=== PATIENT | male | born 1975 | race Caucasian/White ===

== ENCOUNTER 2025-02-11 10:51 | Outpatient (CLI) | payer OTHER, SELFPAY ==
--- NOTE | ~2025-02-11 | MR_ITS ---
EXAMINATION: MR shoulder LT wo con DATE: 02/11/2025 11:25 INDICATION: Rotator cuff tear. Left shoulder pain. TECHNIQUE: Magnetic resonance imaging (MRI) of the left shoulder was performed without intravenous co ntrast. Sequences included axial PD-weighted FS FSE, coronal oblique PD-weighted FS FSE and T2-weight ed FS FSE, and sagittal oblique T2-weighted FS FSE and T1-weighted FSE. COMPARISON: None. FINDINGS: Coracoacromial arch: The acromion undersurface is curved in morphology (type II). There is moderate acromioclavicular join t osteoarthritis including inferiorly directed osteophytes. Subacromial spurring is noted. There is m oderate subacromial/subdeltoid bursitis. Rotator cuff: There is a full-thickness tear of supraspinatus tendon measuring 13 mm anterior to posterior by 9 mm proximal to distal. There is mild infraspinatus tendinopathy. Teres minor tendon is normal. There is mild subscapularis tendinopathy. There is no asymmetric fatty atrophy of the rotator cuff muscle huff ies. Biceps tendon and glenoid labrum: Biceps tendon is in bicipital groove. Intra-articular biceps tendon is normal. There is a tear of bas e of posterior glenoid labrum. Fluid: There is no glenohumeral joint effusion. Bones/cartilage: There is cartilage surface irregularity of glenoid and humeral head. IMPRESSION: 1. Full-thickness rotator cuff tear. 2. Mild glenohumeral joint chondrosis. 3. Moderate subacromial/subdeltoid bursitis. 4. Moderate acromioclavicular joint osteoarthritis. Reviewed, dictated and finalized at location B.
== END 2025-02-11 10:52 | disposition home or self-care (01) ==
LOC: GOSHIMG 10:52
PROVIDERS: PCP Chiropractor; Visit Provider Chiropractor
DX: M75.122 Complete rotator cuff tear or rupture of left shoulder, not specified as traumatic (principal); M94.212 Chondromalacia, left shoulder; M75.52 Bursitis of left shoulder; M19.012 Primary osteoarthritis, left shoulder
CPT/HCPCS: 73221

== ENCOUNTER 2025-08-10 16:55 | Outpatient (CLI) | payer OTHER, SELFPAY ==
--- NOTE | ~2025-08-10 | XR_ITS ---
EXAMINATION: XR hand LT min 3V, 08/10/2025 17:04 CDT HISTORY: Arthritis of first carpometacarpal joint of left hand COMPARISON: No comparisons available. Findings: There are postsurgical changes noted involving the first metacarpocarpal joint and the proximal second metacarpal. No fracture or dislocation. Minimal degenerative changes. Soft tissue swelling. Impression: Post surgical changes Reviewed, dictated and finalized at location A. Impression: Post surgical changes
--- OUTSIDE RECORDS SUMMARY | 2025-08-10 17:23 | XMS_ITS | Clinical Summary ---
Author Organization [employer] [id number] [facility] Address [address] [place] [address] Care Team Providers Care Network Project Manager Name Role Phone Pato Meyer MD Primary Care Provider [phone] Medications No known medications Active Problems No known active problems Social History Tobacco Use Types Packs/Day Years Used Date Smoking Tobacco: Never Assessed Sex and Gender Information Value Date Recorded Sex Assigned at Not on file Legal Sex Male 9:53 PM CDT Gender Identity Not on file Sexual Orientation Not on file Last Filed Vital Signs Vital Sign Reading Time Taken Comments Blood Pressure - - Pulse - - Temperature - - Respiratory Rate - - Oxygen Saturation - - Inhaled Oxygen Concentration - - Weight 77.1 kg (170 lb) 10/20/2019 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 Height 167.6 cm (5' 6) 10/20/2019 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 Body Mass Index 27.44 10/20/2019 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 Plan of Treatment Health Maintenance Due Date Last Done Comments DTAP/TDAP/TD VACCINES (1 - Tdap) 02/05/1996 HEPATITIS B VACCINES (1 of 3 - 19+ 3-dose series) 05/1996 COLORECTAL SCREENING 2022 Colorectal Cancer Screening 2022 FIT-DNA Q 3 years 2022 FIT/FOBT Q 1 year 2022 Flex Sig/CT Colonography Q 5 years 2022 INFLUENZA VACCINE (#1) 2025 Insurance [employer] HMO OPEN ACCESS Care Teams Network Project Manager Relationship Specialty Start Date End Date Pato Meyer MD [address] [place] [address] PCP - General 07/16/18
--- OUTSIDE RECORDS SUMMARY | 2025-08-10 17:23 | XMS_ITS | Clinical Summary ---
Author Organization [facility] [employer] Address [facility] [facility] [place] [address] Care Team Providers Care Continuity Person Name Role Phone Calvin Lara MD Primary Care Provider [phone] Source Comments [facility] [employer] [employer],non-owned Affiliates and Associated Physician Practices is amultiple site organization consisting of ambulatory clinics and hospital sitesin [place], [place], [place] and [place]. This disclosure is being madepursuant to the Care Everywhere program and may not contain all information available regarding this patient. Last updated 18.[facility] [employer] [employer] Allergies No known active allergies Medications * Be aware that medications may not be up to date on this document. Alwaysverify current medications with the patient. pregabalin (Lyrica) 25 MG capsule 12/30/19 25 Active gabapentin (Neurontin) 100 MG capsule Take 1 (one) capsule by mouth 3 times daily Active omeprazole (PriLOSEC) 20 MG capsule omeprazole 20 mg capsule,delayed release Active testosterone cypionate (Depo-Testoste marcial) 200 MG/ML injection INJECT 1 ML INTRAMUSCULARLY ONCE A WEEK 09/14/20 24 Active anastrozole (Arimidex) 1 MG tablet TAKE ONE TABLET BY MOUTH THE DAY OF TESTOSTERONE INJECTION (ONCE WEEKLY) AND 1/2 TABLET 4 DAYS LATER. 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 Gender Identity Not on file Sexual Orientation Not on file Last Filed Vital Signs Vital Sign Reading Time Taken Comments Blood Pressure - - Pulse - - Temperature - - Respiratory Rate - - Oxygen Saturation - - Inhaled Oxygen Concentration - - Weight 79.4 kg (175 lb) 01/18/2025 9:38 AM 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 Height 167.6 cm (5' 6) 01/18/2025 9:38 AM 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 Body Mass Index 28.25 01/18/2025 9:38 AM 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 Plan of Treatment Health Maintenance Due Date Last Done Comments COLOGUARD (AGES 45-75) - COL ON CA SCREENING 1977 CT COLONOGRAPHY - COLON CA SCREENING 1977 FIT - COLON CA SCREENING 1977 FLEX SIG - COLON CA SCREENING 1977 LIPID TESTING 1977 HIV SCREENING 02/05/1992 HEPATITIS C SCREENING 01/31/1995 DTAP/TDAP/TD VACCINES (1 - Tdap) 02/05/1996 HEPATITIS B VACCINE (1 of 3 - 19+ 3-dose series) 02/05/1996 COVID-19 VACCINE (1 - 2023-2 5 season) 2024 DEPRESSION SCREENING 12/02/2024 SCREENING FOR DIABETES 01/18/2025 INFLUENZA VACCINE (#1) 2025 ZOSTER VACCINE (1 of 2) 2027 COLON MONITORING 09/21/2032 09/21/2022, 09/21/2022 COLONOSCOPY - COLON CA SCREENING 09/21/2032 09/21/2022, 09/21/2022 Colorectal Cancer Screening 09/21/2032 HIB VACCINE Aged Out No longer eligi ble based on patient's age to complete this topic HPV VACCINE Aged Out No longer eligi ble based on patient's age to complete this topic MENINGOCOCCAL (Group B) VACCINE SHARED DECISION-MAKING Aged Out No longer eligible based on patient's age to complete this topic MENINGOCOCCAL GROUPS A/C/Y/W VACCINE Aged Out No longer eligible b ased on patient's age to complete this topic PNEUMOCOCCAL VACCINE Aged Out No long er eligible based on patient's age to complete this topic Insurance [employer]ET[employer] Care Teams Continuity Person Relationship Specialty Start Date End Date Calvin Lara MD [address] [place] [id number] PCP - General Family Medicine 01/18/25
--- OUTSIDE RECORDS SUMMARY | 2025-08-10 17:23 | XMS_ITS | Clinical Summary ---
Author Organization [facility] Address [address] [place] [address] Care Team Providers Care Global Program Manager Name Role Phone Pato Meyer MD Primary Care Provider [phone] Allergies No known active allergies Medications anastrozole (ARIMIDEX) 1 MG tablet TAKE 1 TABLET BY MOUTH THE DAY OF INJECTION AND 1/2 TABLET 3-4 DAYS LATER 2 Active B-D HYPODERMIC NEEDLE 22GX1 22G X 1 Misc TO BE USED TO INJECT TESTOSTERONE ONCE WEEKLY 2 Active B-D 3CC LUER-DANETTE SYR 26YN9-2/2 18G X 1-1/2 3 ML Misc USE ONE OF EACH TO WITHDRAW AND INJECT YOUR MEDICATION 2 Active testosterone cypionate (DEPO TESTOSTERONE) 200 MG/ML injection 2 Active Active Problems Problem Noted Date Diagnosed Date Cervical radiculopathy 01/08/2025 Lumbar pain 03/29/2022 Social History Tobacco Use Types Packs/Day Years Used Date Smoking Tobacco: Never Smokeless Tobacco: Never Alcohol Use Standard Drinks/Week Comments Yes 0 (1 standard drink = 0.6 oz pur e alcohol) weekly Sex and Gender Information Value Date Recorded Sex Assigned at Male 01/14/2025 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 Legal Sex Male 9:55 AM CDT Gender Identity Not on file Sexual Orientation Not on file Last Filed Vital Signs Vital Sign Reading Time Taken Comments Blood Pressure 130/76 09/21/2022 10:57 AM CDT Pulse 66 09/21/2022 10:57 AM CDT Temperature 35.3 C (95.5 F) 09/21/2022 10:57 AM CDT Respiratory Rate 18 09/21/2022 10:57 AM CDT Oxygen Saturation 99% 09/21/2022 10:57 AM CDT Inhaled Oxygen Concentration - - Weight 80.7 kg (178 lb) 09/17/2022 2:41 PM CDT Height 167.6 cm (5' 6) 09/17/2022 2:41 PM CDT Body Mass Index 28.73 09/17/2022 2:41 PM CDT Plan of Treatment Health Maintenance Due Date Last Done Comments Annual Physical 02/05/1980 Hepatitis C 1995 DTaP, Tdap and Td Vaccines ( 1 - Tdap) 02/05/1996 Hepatitis B Vaccines (1 of 3 - 19+ 3-dose series) 02/05/1996 COVID-19 Vaccine (2023-2 5 season) 2025 Colorectal Cancer Screening Colonoscopy (10 Years) 09/21/2032 09/21/2022, 09/21/2022 Meningococcal B Vaccine Aged Out No l onger eligible based on patient's age to complete this topic Meningococcal Vaccine Aged Out No bayron shani eligible based on patient's age to complete this topic Pneumococcal Vaccine: Pediatrics (0 to 5 Years) and At-Risk Patients (6 to 49 Years) Aged Out No longer eligible b ased on patient's age to complete this topic RSV Immunizations Under 20 Months Aged Out No longer eligible b ased on patient's age to complete this topic Procedures Procedure Name Priority Date/Time Associated Diagnosis Comments COLONOSCOPY 09/21/2022 6:43 AM CDT from Last 3 Months or Most Recently Relevant to Health Maintenance Results * Colonoscopy (09/21/2022 6:43 AM CDT) us Fermín Mckay MD GI PROCEDURE ORDERABLES Final Result from Last 3 Months or Most Recently Relevant to Health Maintenance Insurance [employer] Care Teams Global Program Manager Relationship Specialty Start Date End Date Pato Meyer MD [address] [place] [address] PCP - General FAMILY PRACTICE 07/07/21
--- OUTSIDE RECORDS SUMMARY | 2025-08-10 17:23 | XMS_ITS | Clinical Summary ---
Author Organization [facility] [employer] Address [address] [place] [address] Care Team Providers Care Rivet Heater Gas Name Role Phone Calvin Lara MD Primary Care Provider [phone] Allergies No known active allergies Medications anastrozole (ARIMIDEX) 1 mg tabletIndicatio ns:estrogen liang Take 1 tablet (1 mg total) by mouth once a week Takes on Mondays 2 Active testosterone cypionate (DEPO-TESTOTERO NE) 200 mg/mL injectionIndica tions:Androgen Deficiency Inject 0.8 mL (160 mg total) into the muscle as instructed once a week Takes on Mondays 2 Active ascorbic acid (VITAMIN C ORAL)Indication s:supplement Take 1 tablet by mouth every morning Active multivitamin tabletIndicatio ns:Vitamin Deficiency Prevention Take 1 tablet by mouth every morning Active docosahexaenoic acid/epa (FISH OIL ORAL)Indication s:supplement Take 1 tablet by mouth every morning Active UNABLE TO FINDIndications :supplement Take by mouth every morning Med Name: Erlinda monet- 1 tablet Active Active Problems Problem Noted Date Diagnosed Date Complete tear of left rotator cuff 03/05/2025 Tinnitus of both ears 01/03/2023 Sensorineural hearing loss (SNHL) of both ears 0 01/03/2023 Encounters Date Type Department Care Team Description 07/22/2025 Telephone [facility] Medicine Orthopaedic Surgery [address] [facility] [address] [place] [address] Tang Sow MD from Last 3 Months Surgical History Surgery Date Site/Laterality Comments LUMBAR FUSION 12/02/2019 - 12/01/2020 LUMBAR DISCECTOMY 12/02/2016 - 12/01/2017 ARTHROSCOPIC REPAIR ACL Right x2, last one was 2003 ESOPHAGOGASTRODUODENOSCOPY 09/01/2022 - 10/01/2022 COLONOSCOPY 09/01/2022 - 10/01/2022 ANKLE SURGERY 12/02/1990 - 12/01/1991 Left ANKLE SURGERY 12/02/2003 - 12/01/2004 Left ANKLE SURGERY 12/02/2007 - 12/01/2008 Right KNEE ARTHROSCOPY Right x2, unknown dates APPENDECTOMY 12/02/1983 - 12/01/1984 TONSILLECTOMY AND ADENOIDECTOMY 12/02/1987 - 12/01/1988 Medical History Medical History Date Comments Allergic rhinitis Tinnitus Family History Medical History Relation Name Comments Cancer Maternal Grandfather Cancer Maternal Grandmother Cancer Paternal Grandfather Cancer Paternal Grandmother Anesthesia problems Neg Hx Relation Name Status Comments Maternal Grandfather Maternal Grandmother Paternal Grandfather Paternal Grandmother Social History Tobacco Use Types Packs/Day Years Used Date Smoking Tobacco: Former Cigarettes 1 3 1 999 - 2001 Passive Smoke Exposure: Never Smokeless Tobacco: Never Tobacco Cessation:Counseling Given: Not Answered AUDIT-C Answer Date Recorded Q1: How often do you have a drink containing alc ohol? 2-3 times a week 03/08/2025 Q2: How many drinks containi ng alcohol do you have on a typical day when you are drinking? 3 or 4 03/08/2025 Q3: How often do you have si x or more drinks on one occasion? 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 Gender Identity Not on file Sexual Orientation Not on file Obstetrics History Last Filed Vital Signs Vital Sign Reading Time Taken Comments Blood Pressure - - Pulse - - Temperature - - Respiratory Rate 18 01/03/2023 10:38 AM SENIOR PROCESS ANALYST Oxygen Saturation - - Inhaled Oxygen Concentration - - Weight 79.4 kg (175 lb) 03/08/2025 2:50 PM CDT Height 167.6 cm (5' 6) 03/08/2025 2:50 PM CDT Body Mass Index 28.25 03/08/2025 2:50 PM CDT Plan of Treatment Upcoming Encounters Date Type Department Care Team (Latest Contact Info) Description 08/27/2025 9:55 AM CDT Hospital Encounter [facility] [address] [place] [address] [place] [address] [place] [address] 08/27/2025 9:55 AM CDT Anesthesia Event [facility] [address] [place] [address] Ara Goyal, GERALD [address] [facility] [phone] [place] [address] 08/27/2025 9:55 AM CDT - 08/27/2025 12:10 PM CDT Surgery [facility] [address] [place] [address] [place] [address] [place] [id number] LEFT - ARTHROSCOPY SHOULDER ROTATOR CUFF REPAIR Scheduled Procedures Name Priority Associated Diagnoses Date/Ti me ARTHROSCOPY SHOULDER ROTATOR CUFF REPAIR Complete tear of left rotator cuff, unspecified whether traumatic 08/27/2025 9:55 AM CDT Health Maintenance Due Date Last Done Comments Colon Cancer Screening-Colonoscopy 1977 Depression Screening 1977 Hepatitis C Screening 1977 DTaP/Tdap/Td Vaccine (1 - Tdap) 02/05/1988 Hepatitis B Screening 1995 Regular Well Visit/Exam 18-64 1995 Pneumococcal vaccine <65 (1 of 2 - PCV) 02/05/1996 Zoster Vaccine (1 of 2) 02/05/1996 Influenza Vaccine (#1) 2025 Goals Goal Patient Goal Type Associated Problems Recent Progress Patient-Stated? Author [employer]ogenera gordo Goal Care Plan Autogenerated Problem No Ashley Thompson MA Additional Health Concerns Active Problems Noted Date Diagnosed Date Autogenerated Problem 07/12/2025 Insurance [facility] Care Teams [employer] Relationship Specialty Start Date End Date Calvin Lara MD [address] [place] [address] PCP - General Family Medicine 12/11/22
--- OUTSIDE RECORDS SUMMARY | 2025-08-10 17:24 | XMS_ITS | Patient Health Record ---
Author Organization [facility] Address [address] [place] [address] Care Team Providers Care Advertising Job Titles Name Role Phone TorresFarhad parson Unavailable [phone] Brooke REYES, Derrek Unavailable Unavailable Reason For Referral No Information Medications Medication SIG (Take, Route, Fr equency, Duration) Notes Start Date End Date Status Testosterone Active Omeprazole 20 MG Act sinan Social History Tobacco Use: Social History Observation Description Date Details (start date - stop date) Former Smoker NA - NA Tobacco Use/Smoking Question Answer Notes Are you a former smoker How long has it been since you last smoked? > 10 years Alcohol Screen (Audit-C) Question Answer Notes Did you have a drink contain ing alcohol in the past year? Yes How often did you have a dri nk containing alcohol in the past year? 4 or more times a week (4 points) How many drinks did you have on a typical day when you were drinking in the past year? 1 or 2 drinks (0 point) Points 4 Interpretation Positive Problems Problem Type SNOMED Code ICD Code Onset Dates Problem Status W/U Status Risk Notes Problem Lumbar radiculopathy (001561246) Radiculopathy, lumbar region (M54.16) Active confirmed Problem Lumbosacral radiculopathy (5083812) Radiculopathy, lumbosacral region (M54.17) Active confirmed Plan Of Treatment No Information Insurance Providers Payer Name Payer Address Payer Phone Subscriber Number Group Number Insured Name Patient Relationship to Insured Coverage Start Date Coverage End Date [employer] HMO POS [address] [place] [address] [phone] [id number] Tang Marley Self - patient is the insured Medical (General) History Surgical History Surgery Date(Month/Year) Appendectomy 2 ACL Replacements 2 Right Ankle 2 Left Ankle Lumbar Discectomy
== END 2025-08-10 16:56 | disposition home or self-care (01) ==
PROVIDERS: PCP Family Medicine; Visit Provider Orthopaedic Surgery Hand Surgery
DX: M13.842 Other specified arthritis, left hand (principal)
CPT/HCPCS: 73130